=== PATIENT | male | born 1950 | race Caucasian/White ===

== ENCOUNTER 2016-08-18 17:55 | Emergency (ER) | payer MEDICARE, MEDICAID | END 2016-08-18 19:00 | disposition home or self-care (01) | LOC: D.ER 17:55 | DX: F32.9 Major depressive disorder, single episode, unspecified (principal); F43.21 Adjustment disorder with depressed mood; I48.91 Unspecified atrial fibrillation; I10 Essential (primary) hypertension; J44.9 Chronic obstructive pulmonary disease, unspecified ==

== ENCOUNTER 2017-10-27 17:18 | Emergency (ER) | payer MEDICARE, MEDICAID ==
[2017-10-27 18:05] LABS: BASOPHILS 0.4 % (0-2); EOSINOPHILS 4.3 % (0-7); HEMATOCRIT 47.3 % (42.0-54.0); HEMOGLOBIN 16.4 g/dL (13.5-17.5); IMMATURE GRANULOCYTES 0.1 % (0-5); LYMPHOCYTES 28.6 % (15-50); MCHC 34.7 g/dL (31.0-37.0); MCV 92.2 fL (80.0-100.0); MEAN PLATELET VOLUME 10.7 fL (7.4-10.4); NEUTROPHILS 55.6 % (40-80); PLATELET COUNT 248 10x3/uL (130-400); RBC 5.13 10x6/uL (4.20-6.10); RDW 14.3 % (11.5-14.5); WBC 8.9 10x3/uL (4.8-10.8)
[2017-10-27 18:14] LABS: UDS - AMPHET NEGATIVE QUAL (NEGATIVE); UDS - BARB NEGATIVE QUAL (NEGATIVE); UDS - BENZO NEGATIVE QUAL (NEGATIVE); UDS - COCAINE POSITIVE QUAL (NEGATIVE); UDS - OPIATE NEGATIVE QUAL (NEGATIVE); UDS - PCP NEGATIVE QUAL (NEGATIVE); UDS - THC NEGATIVE QUAL (NEGATIVE)
[2017-10-27 18:15] LABS: APPEARANCE CLEAR (CLEAR); BILIRUBIN NEGATIVE (NEGATIVE); COLOR YELLOW (YELLOW); GLUCOSE NEGATIVE (NEGATIVE); KETONE NEGATIVE (NEGATIVE); NITRITE NEGATIVE (NEGATIVE); PROTEIN TRACE mg/dL (NEGATIVE); SPECIFIC GRAVITY 1.025 (1.005-1.020); UROBILINOGEN NORMAL (NORMAL)
[2017-10-27 18:16] LABS: RED CELLS - URINE 0-5 /hpf (0-5); WHITE CELLS - URINE 0-5 /hpf (0-5)
[2017-10-27 18:17] LABS: BACTERIA FEW /hpf (NONE SEEN); MUCUS <1+ /lpf (NONE SEEN)
[2017-10-27 18:22] LABS: ALBUMIN 3.5 g/dL (3.4-5.0); ANION GAP 12.4 mmol/L (8-16); BILIRUBIN - TOTAL 0.27 mg/dL (0.2-1.3); CALCIUM 9.1 mg/dL (8.5-10.1); CARBON DIOXIDE 27.8 mmol/L (21.0-32.0); CREATININE - SERUM 1.3 mg/dL (0.6-1.3); POTASSIUM - SERUM 4.2 mmol/L (3.5-5.1); PROTEIN - SERUM 7.2 g/dL (6.4-8.2)
== END 2017-10-27 18:34 | disposition home or self-care (01) ==
LOC: D.ER 17:18
PROVIDERS: Emergency Medicine
DX: F32.9 Major depressive disorder, single episode, unspecified (principal); J44.9 Chronic obstructive pulmonary disease, unspecified; I10 Essential (primary) hypertension; F17.200 Nicotine dependence, unspecified, uncomplicated

== ENCOUNTER 2019-03-30 14:06 | Inpatient (IN) | payer MEDICARE, MEDICAID ==
[~2019-03-30] VITALS: Ht 185.4 cm; Wt 84.9 kg
[2019-03-30] MEDS ORDERED: ENTRESTO 24 MG1 EACH PO (14:11)
[2019-03-30] MEDS ORDERED: COMBIVENT RESPIM4 GM INH (14:11)
[2019-03-30] MEDS ORDERED: COREG6.25 MG PO (14:12)
[2019-03-30] MEDS ORDERED: ELIQUIS5 MG PO (14:12)
--- NOTE | 2019-03-30 14:24 | NUR ---
ELDER COUNSELOR CALLED TO HAVE BEHAVIOR HEALTH NURSE COME ASSESS PATIENT D/T SCORING HIGH ON [place] SUICIDE SCREENING DURING TRIAGE.
[2019-03-30 14:40] LABS: BASOPHILS 0.3 % (0-2); EOSINOPHILS 3.6 % (0-7); HEMOGLOBIN 16.8 g/dL (13.5-17.5); IMMATURE GRANULOCYTES 0.3 % (0-5); LYMPHOCYTES 24.2 % (15-50); MCH 32.1 pg (26.0-34.0); MCHC 33.6 g/dL (31.0-37.0); MCV 95.6 fL (80.0-100.0); MEAN PLATELET VOLUME 10.9 fL (7.4-10.4); MONOCYTES 10.1 % (2-11); NEUTROPHILS 61.5 % (40-80); PLATELET COUNT 255 10x3/uL (130-400); RBC 5.23 10x6/uL (4.20-6.10); RDW 14.1 % (11.5-14.5); WBC 8.9 10x3/uL (4.8-10.8)
[2019-03-30 14:45] LABS: UDS - AMPHET NEGATIVE QUAL (NEGATIVE); UDS - BARB NEGATIVE QUAL (NEGATIVE); UDS - BENZO NEGATIVE QUAL (NEGATIVE); UDS - COCAINE POSITIVE QUAL (NEGATIVE); UDS - OPIATE NEGATIVE QUAL (NEGATIVE); UDS - PCP NEGATIVE QUAL (NEGATIVE); UDS - THC NEGATIVE QUAL (NEGATIVE)
[2019-03-30 14:50] LABS: APPEARANCE CLEAR (CLEAR); COLOR YELLOW (YELLOW)
[2019-03-30 14:51] LABS: BILIRUBIN NEGATIVE (NEGATIVE); GLUCOSE NEGATIVE (NEGATIVE); KETONE NEGATIVE (NEGATIVE); NITRITE NEGATIVE (NEGATIVE); PROTEIN TRACE mg/dL (NEGATIVE); UROBILINOGEN NORMAL (NORMAL)
[2019-03-30 14:52] LABS: RED CELLS - URINE 0-5 /hpf (0-5); WHITE CELLS - URINE 0-5 /hpf (NEGATIVE)
[2019-03-30 14:52] LABS: ANION GAP 13.9 mmol/L (8-16); CALCIUM 9.2 mg/dL (8.5-10.1); CARBON DIOXIDE 24.4 mmol/L (21.0-32.0); CREATININE - SERUM 1.3 mg/dL (0.6-1.3); POTASSIUM - SERUM 4.3 mmol/L (3.5-5.1)
[2019-03-30 14:53] LABS: BACTERIA MODERATE /hpf (NEGATIVE); EPITHELIAL CELLS 0-5 /hpf (0-5); GRANULAR CAST 0-5 /lpf (NONE SEEN); HYALINE CAST 0-5 /lpf (NONE SEEN); MUCUS >1+ /lpf (NONE SEEN)
[2019-03-30 15:07] LABS: ALBUMIN 3.8 g/dL (3.4-5.0); BILIRUBIN - TOTAL 0.66 mg/dL (0.2-1.3); MAGNESIUM - SERUM 2.1 mg/dL (1.8-2.4); PROTEIN - SERUM 7.7 g/dL (6.4-8.2); THYROID STIMULATING HORMONE 5.77 uIU/mL (0.36-3.74)
--- NOTE | 2019-03-30 15:20 | NUR ---
DR. AU NOTIFIED AND SITTER ORDERED. SITTER AT BEDSIDE. NOTIFIED CHARGE NURSE AND ATTENDING IN REGARDS TO ASSESSMENT FINDINGS. RESOURCES GIVEN TO PT AND SAFETY PLAN INITIATED.
[2019-03-30 16:10] LABS: CKMB 1.4 U/L (0.0-3.6); CREATINE KINASE 109 UL (21-232); PRO BNP 50 pg/mL (0-125); TROPONIN-I < 0.017 ng/mL (0.000-0.060)
[2019-03-30 19:47] VITALS: BP 117/63; BMI 24.0
--- NOTE | 2019-03-30 21:34 | NUR ---
NEW ADMIT TO DOCTOR AU ON ASSISTED FROM [facility] ED FOR SUICIDE IDEATION. TRANSPORTED TO ASSISTED VIA WHEELCHAIR. ACCOMPANIED BY STAFF. UPON ARRIVAL, PATIENT IS CALM AND COOPERATIVE WITH ADMISSION ASSESSMENTS. CONSENT TO TREAT SIGNED BY PATIENT. CODE STATUS DISCUSSED WITH PATIENT AND IS A DNR. CODE WORD IS BILL. PATIENT DENIES SUICIDAL IDEATION. STATES HE SAID HE WAS SUICIDAL SO THAT HE WOULD HAVE A PLACE TO STAY TONIGHT.
[2019-03-31 07:45] LABS: CHOL - HDL RATIO 4.6 ratio (2.3-4.9); LDL-HDL RATIO 3.2 ratio (1.5-3.5)
[2019-03-31 10:44] VITALS: BP 133/69
[2019-03-31 14:38] VITALS: Ht 185.4 cm; Wt 84.9 kg
--- NOTE | 2019-03-31 15:23 | NUR ---
PT IS AAOX4. PT DENIES SI AT THIS TIME. CALM AND COOPERATIVE WITH ASSESSMENT. PRESCRIBED MEDS PROVIDED ORDERED. WILL CPOC.
[2019-03-31 21:37] VITALS: BP 132/69
--- NOTE | 2019-04-01 00:05 | NUR ---
RECEIVED IN HALLWAY. STANDING AT NURSES STATION SOCIALIZING WITH STAFF AND PEERS. CALM AND COOPERATIVE WITH CARE AND ASSESSMENT. DENIES THOUGHTS OF SELF HARM. ENCOURAGE TO EXPRESS NEEDS. RESTING IN BED WITH EYES CLOSED. CONTINUE PLAN OF CARE
[2019-04-01 08:00] VITALS: BP 118/64
[2019-04-01 08:11] LABS: RAPID PLASMA REAGIN Non Reactive (Non Reactive)
--- NOTE | 2019-04-01 12:52 | PSY ---
PATIENT NAME:RUSLAN BARTLETT MEDICAL RECORD: [id number] : 52 LOCATION:[facility] ADMISSION DATE: 03/30/19 ACCOUNT: [id number] PSYCHIATRIC EVALUATION DATE OF EVALUATION: 03/31/19 IDENTIFYING DATA: The patient is 69 years old and he is admitted to the hospital on a voluntary basis. CHIEF COMPLAINT: Suicidal thoughts. HISTORY OF PRESENT ILLNESS: The patient presented to the Emergency Room last night and indicated that he was suicidal. He was subsequently admitted to the behavioral unit. Today, he says that he was lying and that he only wanted a place to stay. When asked about why he would say he was suicidal, he is having difficulty giving me an adequate explanation. The man is below average in intelligence I think, but it just seems flat and not very believable to think that you can come to the Emergency Room and reports suicidal thoughts and that they are going to find you a hotel room instead of placing you in a psychiatric hospital. At any rate, this is the situation, but I find it only marginally believable. He is denying neurovegetative depressive symptoms and he has consistently told the same story to the staff throughout the day. They have observed him and not seen any evidence of dangerousness. The patient wants to go home and I have told him I will not allow that whether I need to place him on a hold or not and I explained that and he says he will stay. PAST MEDICAL HISTORY: Significant for atrial fibrillation, COPD, arthritis, possible prostate cancer that is currently being evaluated. PAST PSYCHIATRIC HISTORY: Negative by the patient's report. He tells me that he has never seen a psychiatrist or been in any kind of a substance abuse treatment program. FAMILY HISTORY: Noncontributory. ALLERGIES: No known drug allergies. CURRENT MEDICATIONS: Include Coreg, Eliquis, and albuterol. SOCIAL HISTORY: The patient is . He does have adult children. 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 He tells me that he was living at the [facility], which is a low income housing building in [place]. He says he was evicted from that because they found out he is a convicted felon. Obviously, he lied on the application; otherwise, they would never have even allowed him to come into the facility. He tells me that he is on probation for drug paraphernalia. He has a long explanation about how he was arrested for this, but it really is not his drug paraphernalia. Interestingly, he was positive for cocaine last night when he came to the Emergency Room with this highly questionable story and he tells me that that was the first time he has used cocaine. Again, I find this not very believable. He is on probation and has to report regularly to his purchasing officer who will drug test him. He is aware that if he is positive for cocaine, he might be revoked. He does not think that is much of a threat because since he has been on probation, he has also been arrested for shoplifting. He says that was just a misdemeanor charge and it did not affect his felony probation. He currently is homeless, but he says he knows someone who will let him come and stay with him. MENTAL STATUS EXAMINATION: The patient is awake, alert, and oriented to person, place, time and situation. His mood is euthymic and his affect is appropriate. Thought processes are logical and goal directed except when asked about something that makes him uncomfortable at which time he becomes very circumspect. I suspect he is just simply lying when I ask him something that is inconsistent or makes him uncomfortable. Otherwise, his thought processes are easily followed and well connected. His memory and concentration are intact. He is concrete to abstraction, but I suspect that is related to low intelligence. He denies that he would seek to harm himself or others and he denies psychotic symptoms. ASSESSMENT: AXIS I: 1. Rule out major depression. 2. Cocaine abuse. 3. Probable malingering. AXIS II: Antisocial personality traits, if not outright disorder. AXIS III: Chronic obstructive pulmonary disease, arthritis, possible prostate cancer, atrial fibrillation. AXIS IV: Moderate. AXIS V: Global assessment of functioning is 40. PLAN: At this time, I have something of a mystery. The patient comes to the ER and says very flatly to multiple people that he is wanting to kill himself, but after he is admitted to the hospital he completely changes his story. He is certainly below average intelligence, but I just simply cannot except that he thought that he would somehow come to the Emergency Room and say he was suicidal and that the social media analyst would find him an apartment. It just simply does not make sense and he is not that low functioning. Nevertheless, he is not showing any evidence of depression and he certainly was under the influence of an illicit substance when he came to the hospital so perhaps that may have been part of the thinking. He does not want any substance abuse treatment in fact, he does not think it is necessary since he has only used cocaine once even though he is on probation for drug paraphernalia and it was a felony charge which also tells me that there is more to this than he is telling me. I suspect he probably has a very long criminal record. My main concern is safety. At this point I am suspecting that he is not an acute risk but I have informed him that I am not going to allow him to go until he is observed a little longer. I am not going to start him on antidepressant medication at this point and will just simply observe him another 24 hours and then make a decision. I do think he has a fairly extensive substance use problem and hopefully I will be able to establish some rapport with him and can refer him to a substance abuse treatment program. I am also not going to allow him to leave unless I have confirmation that he indeed has a place to go. TRANSINT:[id number] Voice Confirmation ID: [id number] DOCUMENT ID: [id number] CHAYO AU MD at 1252 CC: [id number] DICTATION DATE: 03/31/19 173 AUTOMATED PROCESS OPERATOR: 03/31/195 ADM IN [id number] [place] [address]
--- NOTE | 2019-04-01 15:10 | NUR ---
PATIENT ALERT, ORIENTED, NO BEHAVIORAL ISSUES NOTED. RESTLESS, EXPECTING THE PHYSICIAN TO CALL WITH DISCHARGE ORDERS AT ANY TIME. STATES THAT HE WILL NEVER SHOW UP AT A HOSPITAL AND MAKE SUICIDAL STATEMENTS. STATED,"IT'S ALOT EASIER TO GET IN THIS PLACE THAN GET OUT OF IT!" PATIENT COOPERATIVE WITH MEDS AND OTHER ASPECTS OF PATIENT CARE.
--- NOTE | 2019-04-01 16:00 | NUR ---
PATIENT BECAME ARGUMENTATIVE, INSISTING TO LEAVE AMA. PHYSICIAN NOTIFIED. AFTER FURTHER CONVERSATION, PATIENT DECIDED TO PEACEFULLY TAKE HIS SEAT AND COMPLY WITH MEDICAL ADVICE.
[2019-04-01 20:00] VITALS: BP 116/59
--- NOTE | 2019-04-01 22:00 | NUR ---
RECEIVED IN DINING ROOM. WATCHING TV. CALM AND COOPERATIVE WITH CARE AND ASSESSMENT. DENIES THOUGHTS OF SELF HARM. REDIRECT AND REORIENT NEEDED. RESTING IN BED WITH EYES OPEN AT THIS TIME. CONTINUE PLAN OF CARE.
[2019-04-02 08:42] VITALS: BP 131/56
--- NOTE | 2019-04-02 12:02 | PN ---
PATIENT:RUSLAN BARTLETT MEDICAL RECORD: [id number] LOCATION:[facility] ADMISSION DATE: 03/30/19 PROGRESS NOTE DATE OF SERVICE: 04/01/2019 SUBJECTIVE: The patient's case was discussed with staff. He has no new complaint. OBJECTIVE: The patient is in good behavioral control. He has a near euthymic mood. He insists he is not suicidal and he continues to insist that he has only used crack cocaine one time and that was prior to this admission. ASSESSMENT: 1. Cocaine abuse. 2. Rule out major depression. PLAN: I think I am reasonably comfortable with the patient leaving and we will allow him to be discharged if appropriate housing can be arranged, either through the friend who has a room that he will let him rent or through the [facility]. TRANSINT:[id number] Voice Confirmation ID: [id number] DOCUMENT ID: [id number] CHAYO AU MD at 1202 CC: [id number] DICTATION DATE: 04/01/19 1300 HOUSEKEEPER SUPERVISOR: 04/01/19 1417 ADM IN [facility] [address] [id number]
--- NOTE | 2019-04-02 16:30 | NUR ---
DISCHARGED TO [facility] VIA [facility]. BELONGINGS AND MEDICATIONS GIVEN TO PATIENT. NO BEHAVIORS TODAY.
--- NOTE | 2019-04-03 13:51 | PN ---
PATIENT:RUSLAN BARTLETT MEDICAL RECORD: [id number] LOCATION:[facility] ADMISSION DATE: 03/30/19 PROGRESS NOTE DATE OF SERVICE: 04/02/2019 SUBJECTIVE: The patient's case was discussed with staff. He has no new complaint. OBJECTIVE: The patient is in good behavioral control with limited insight about his condition. ASSESSMENT: 1. Cocaine abuse. 2. Adjustment disorder with mixed emotional features. 3. Antisocial personality disorder. PLAN: The patient denies being suicidal and continues to state what he has since being admitted. He indicates that he only said he was suicidal, so he would have a place to sleep. I think he probably is telling the truth, although it is very difficult to assess if he is telling the truth. He most definitely has a substance abuse disorder and I do not believe what he has told me about this being the only time he smoked crack cocaine. He does not want treatment for his substance abuse disorder and in fact he denies that he has a problem. He is a convicted felon because of drug paraphernalia he says and he has been arrested numerous times for shoplifting. Based on that background of both addiction and criminal behavior, somehow him reassuring me that he is being honest just does not seem to fly. I am reasonably convinced that he is not acutely dangerous, that he does not suffer from a mood disorder and that he is not very intelligent and that is why he did not understand that he would be given more than a place to sleep if he presented to the Emergency Room saying he was suicidal. Based on these conclusions, I am going to go ahead and release him today. Our social work administrator has made arrangements for him to stay at the local [facility]. The patient claims he has some followup appointments with his logistics solution manager tomorrow and his urologist on Sunday. I have not confirmed those, but he will be out of the hospital and able to take the bus to those appointments. I do not view him as acutely dangerous. I do suspect he is going to continue to use crack cocaine, which will obviously impair his already limited judgment. He is refusing any sort of mental health follow up indicating he does not need it and he gives the same explanation for any substance abuse follow up as an outpatient. TRANSINT:[id number] Voice Confirmation ID: [id number] DOCUMENT ID: [id number] PROGRESS NOTE [id number] RUSLAN BARTLETT PETER MD at 1351 CC: [id number] DICTATION DATE: 04/02/19 1237 PHARMACY CARE COORDINATOR: 04/02/19 1253 DIS IN 04/02/19 [facility] [address] [place] [address]
--- NOTE | 2019-04-04 14:05 | DS ---
PATIENT:RUSLAN BARTLETT :52 MEDICAL RECORD: [id number] DISCHARGE SUMMARY ADMISSION DATE: 03/30/19 DISCHARGE DATE: 04/02/19 IDENTIFYING DATA: The patient is 69 years old and he was admitted to the hospital on a voluntary basis because of suicidal thoughts. The patient presented to the Emergency Room, claiming he was going to kill himself. After being admitted to the behavioral unit, he says he was lying and just wanted a place to stay. He wanted to be discharged. Upon interview, he denied neurovegetative depressive symptoms. He, however, displayed himself as someone not to be trusted because he has a history of antisocial criminal behaviors with multiple arrests for shoplifting and he is currently a convicted felon secondary to drug paraphernalia. He was also telling the most unlikely of stories that he had just used crack cocaine that day and had never used it before, even though he has been convicted of a felony associated with drug paraphernalia, specifically crack cocaine drug paraphernalia. HOSPITAL COURSE: The patient was admitted to the hospital and was clearly below normal intelligence and clearly had antisocial personality traits. There was some concern about whether or not he might actually try to hurt himself. He denied any previous mental health history and again, he was saying that he only presented to the Emergency Room and said he was suicidal because he was homeless. After 3 days of observation, I decided that he was not acutely dangerous and was not depressed and discharged him. DISCHARGE DIAGNOSES: AXIS I: 1. Cocaine use disorder. 2. Malingering. AXIS II: Antisocial personality disorder. AXIS III: Chronic obstructive pulmonary disease, osteoarthritis, atrial fibrillation, and possible prostate cancer. AXIS IV: Severe stressors. AXIS V: Global assessment of functioning is 45. PLAN: At the time of discharge, there was a reasonable clinical certainty that the patient was not acutely dangerous to himself or others. There was certainly no evidence of underlying psychotic symptoms. I do not believe the patient is mentally retarded and he may well not even be borderline intellectual in functioning, but he certainly is well below average in intelligence. Given his history of criminal behaviors and misdemeanor as well as felony convictions, I believe it is reasonable to diagnose him with an antisocial personality disorder. He has no interest in substance abuse treatment and he has no interest in any kind of mental health followup. He simply wants to leave the hospital. I strongly suspect this because he is wanting to use drugs, but that is simply a suspicion. He was discharged to the homeless long term after it was confirmed that they would indeed accept him and followup was scheduled with his primary care physician. No psychoactive medications were started or given to this patient who is a substance abusing antisocial malinger. TRANSINT:[id number] Voice Confirmation ID: [id number] DOCUMENT ID: [id number] DISCHARGE SUMMARY REPORT [id number] RUSLAN BARTLETT PETER MD at 1405 CC: [id number] DICTATION DATE: 04/03/19 140 STORE PLANNER: 04/04/19 0642 DIS IN 04/02/[address] [address]
== END 2019-04-02 16:30 | DRG 881 ==
LOC: D.ER 14:06 → D.PSYCH 17:50
PROVIDERS: Emergency Medicine; ADMIT Psychiatry & Neurology Psychiatry; ATTEND Psychiatry & Neurology Psychiatry
DX: F32.9 Major depressive disorder, single episode, unspecified (principal); I48.91 Unspecified atrial fibrillation; J44.9 Chronic obstructive pulmonary disease, unspecified; M19.032 Primary osteoarthritis, left wrist; I10 Essential (primary) hypertension; F14.90 Cocaine use, unspecified, uncomplicated; Z76.5 Malingerer [conscious simulation]